=== PATIENT | female | born 1995 | race Caucasian/White ===

== ENCOUNTER 2017-01-26 12:03 | Emergency (ER) | payer BC, OTHER ==
--- NOTE | 2017-01-26 12:34 | ER Document Report ---
ED Medical Screen (RME) - General Chief Complaint: Chest Pain Stated Complaint: CHEST PAINS Time Seen by Provider: 01/26/17 12:31 Notes: Patient says that she has been experiencing left upper chest pain off and on since yesterday. Recalls no unusual activity or injury that would have precipitated this pain. She has been breathing and "short breaths". Has not had a cough or cold or chest congestion. Has not been running any fever. No leg pain or swelling. No history of blood clots. Patient has an IUD this been for several months. She has had no abdominal surgery except for D&Cs. On no prescription medications. TRAVEL OUTSIDE OF THE [place] IN LAST 30 DAYS: No - Related Data Allergies/Adverse Reactions: Beef Containing Products Allergy (Intermediate, Verified 01/26/17 12:27) gluten Allergy (Intermediate, Verified 01/26/17 12:27) lactase [From Dairy Aid] Allergy (Intermediate, Verified 01/26/17 12:27) peas Allergy (Intermediate, Verified 01/26/17 12:27) pork derived (porcine) Allergy (Intermediate, Verified 01/26/17 12:27) Past Medical History - Social History Chew tobacco use (# tins/day): No Frequency of alcohol use: None Drug Abuse: None Renal/ Medical History: Denies: Hx Peritoneal Dialysis Physical Exam - Vital signs Vitals: Temp Pulse Resp BP Pulse Ox 98.4 F 79 13 126/90 H 100 01/26/17 12:09 01/26/17 12:09 01/26/17 12:09 01/26/17 12:09 01/26/17 12:09 Course - Vital Signs Vital signs: Temp Pulse Resp BP Pulse Ox 98.4 F 79 13 126/90 H 100 01/26/17 12:09 01/26/17 12:09 01/26/17 12:09 01/26/17 12:09 01/26/17 12:09
--- NOTE | 2017-01-26 13:32 | RADIOLOGY REPORT (SQ) ---
EXAM DESCRIPTION: CHEST PA/LAT COMPLETED DATE/TIME: 01/26/2017 12:46 pm REASON FOR STUDY: Left Upper chest pain since yesterday COMPARISON: None. EXAM PARAMETERS: NUMBER OF VIEWS: two views TECHNIQUE: Digital Frontal and Lateral radiographic views of the chest acquired. RADIATION DOSE: NA LIMITATIONS: none FINDINGS: LUNGS AND PLEURA: No opacities, masses or pneumothorax. No pleural effusion. MEDIASTINUM AND HILAR STRUCTURES: No masses or contour abnormalities. HEART AND VASCULAR STRUCTURES: Heart normal size. No evidence for failure. BONES: No acute findings. HARDWARE: None in the chest. OTHER: No other significant finding. IMPRESSION: NO SIGNIFICANT RADIOGRAPHIC FINDING IN THE CHEST. TECHNICAL DOCUMENTATION: JOB ID: [id number] [employer]- All Rights Reserved
--- NOTE | 2017-01-26 13:53 | ER Document Report ---
ED Cardiac - General Mode of Arrival: Ambulatory Information source: Patient TRAVEL OUTSIDE OF THE [place] IN LAST 30 DAYS: No - HPI Patient complains to provider of: Chest pain Quality of pain: Intermittent Associated symptoms: Other - see above Exacerbated by: Torso movement <CHRISTIANO NULL - Last Filed: 01/26/17 13:55> <BRIAN LAM - Last Filed: 01/26/17 15:38> - General Chief Complaint: Chest Pain Stated Complaint: CHEST PAINS Time Seen by Provider: 01/26/17 12:31 Notes: Patient is a 21 year old female who presents to the ED with complaints of chest pain that has been intermittent since yesterday morning. Patient states she woke up this morning and the pain was worse. Patient states the pain radiates straight through her back and she describes it as achy and tight. Patient denies any known injury and states she has not been working out lately. Patient states it is painful to breath and states the pain was exacerbated by twisting movement yesterday. Patient denies cough, nausea, vomiting, diarrhea, or any recent travel. Patient states she is not , there is no chance of and states she has the Mirena control. (CHRISTIANO NULL) - Related Data Allergies/Adverse Reactions: Beef Containing Products Allergy (Intermediate, Verified 01/26/17 12:27) gluten Allergy (Intermediate, Verified 01/26/17 12:27) lactase [From Dairy Aid] Allergy (Intermediate, Verified 01/26/17 12:27) peas Allergy (Intermediate, Verified 01/26/17 12:27) pork derived (porcine) Allergy (Intermediate, Verified 01/26/17 12:27) Past Medical History - General Information source: Patient - Social History Smoking Status: Never Smoker Chew tobacco use (# tins/day): No Frequency of alcohol use: None Drug Abuse: None Family History: Reviewed & Not Pertinent Patient has suicidal ideation: No Patient has homicidal ideation: No Renal/ Medical History: Denies: Hx Peritoneal Dialysis <CHRISTIANO NULL - Last Filed: 01/26/17 13:55> Review of Systems - Review of Systems Constitutional: No symptoms reported EENT: No symptoms reported Cardiovascular: See HPI, Chest pain Respiratory: See HPI, Hurts to breathe. denies: Cough Gastrointestinal: See HPI. denies: Diarrhea, Nausea, Vomiting Genitourinary: No symptoms reported Female Genitourinary: No symptoms reported Musculoskeletal: No symptoms reported Skin: No symptoms reported Hematologic/Lymphatic: No symptoms reported Neurological/Psychological: No symptoms reported <CHRISTIANO NULL - Last Filed: 01/26/17 13:55> Physical Exam - General General appearance: Appears well, Alert In distress: None - HEENT Head: Normocephalic, Atraumatic Eyes: Normal Extraocular movements intact: Yes Pupils: PERRL - Respiratory Respiratory status: No respiratory distress Breath sounds: Normal - Cardiovascular Rhythm: Regular Heart sounds: Normal auscultation Murmur: No - Abdominal Inspection: Normal Distension: No distension Tenderness: Nontender - Back Back: Normal - Extremities General upper extremity: Normal inspection, Normal ROM General lower extremity: Normal inspection, Normal ROM, Normal weight bearing. No: Edema - Neurological Neuro grossly intact: Yes - Psychological Associated symptoms: Normal affect, Normal mood - Skin Skin Temperature: Warm Skin Moisture: Dry Skin Color: Normal <CHAKACHRISTIANO - Last Filed: 01/26/17 13:55> Course <CHAKACHRISTIANO - Last Filed: 01/26/17 13:55> - Laboratory Result Diagrams: 01/26/17 13:58 01/26/17 13:58 <BRIAN LAM - Last Filed: 01/26/17 15:38> - Re-evaluation Re-evalutation: 01/26/17 15:26 Patient presents emerged from a chief complaint of chest pain. She says it started yesterday left-sided sharp and stabbing achy hesitant to take a deep breath denies any history of trauma and is right-hand dominant. Says is not associated with shortness of breath cough upper respiratory illness. No recent history of travel surgery immobilization DVT or pulmonary emboli she can reproduce it when she moves a certain way when she twisted around yesterday she felt it. Denies any known cardiac history. EKG showed sinus rhythm with no acute changes chest x-ray and labs nonacute. Pain is somewhat reproducible left anterior chest wall no acute clinical concerns for [place] PE or dissection. Patient did not want Toradol. [place] I could check her thyroid here explained to her that that is really a family practice laboratory evaluation it did not warrant immediate ED evaluation she asked for suggestions on other primary care physicians and told her I could give her the name of the on-call primary care doctor today who is Dr. Riggins. And discuss specific reasons for ED return sooner (BRIAN LAM) - Vital Signs Vital signs: Temp Pulse Resp BP Pulse Ox 98.4 F 79 13 126/90 H 100 01/26/17 12:09 01/26/17 12:09 01/26/17 12:09 01/26/17 12:09 01/26/17 12:09 - Laboratory Laboratory results interpreted by me: 01/26/17 13:58 Creatine Kinase < 20 L - EKG Interpretation by Me Additional EKG results interpreted by me: 01/26/17 15:27 EKG shows sinus rhythm at 56 bpm with no acute ST segment elevation or depression (BRINA LAM) Discharge <CHRISTIANO NULL - Last Filed: 01/26/17 13:55> <BRIAN LAM - Last Filed: 01/26/17 15:38> - Discharge Clinical Impression: nonspecific chest wall pain Condition: Stable Disposition: HOME, SELF-CARE Additional Instructions: Chest Pain of Unclear Cause The exact cause of your chest pain isn't clear. Fortunately, there is no evidence of a dangerous medical condition. Further testing may be required to find the source of the pain. Most often, we find that this pain is coming from the chest wall -- the muscles or rib joints in the chest. But chest pain can come from the lung and lung lining, the esophagus, the heart valves or heart lining, and even the stomach or gallbladder. Rest. Eat lightly until the pain is gone. We may prescribe medicine for pain and inflammation. You should call the physician immediately if the pain radiates to the shoulder, jaw or arms; if you start to run a fever or develop a cough; or if you develop shortness of breath, or other new or alarming symptoms. Follow-up with your primary care physician in 3-4 days return for increasing worsening or new symptoms Referrals: GLEN RIGGINS MD [ACTIVE STAFF] - (In 2-3 days return for increasing worsening or new symptoms) Scribe Attestation: 01/26/17 15:26 I personally performed the services described in the documentation reviewed the documentation recorded by my scribe in my presence and it accurately and completely records my words and actions (BRIAN LAM) Scribe Documentation - Scribe Written by Manuel:: manuel Driscoll, 01/26/2017, [id number] acting as scribe for :: Vadim <CHRISTIANO NULL - Last Filed: 01/26/17 13:55>
[2017-01-26 14:09] LABS: ABSOLUTE EOSINOPHILS # (AUTO) 0.1 10^3/uL (0.0-0.6); ABSOLUTE LYMPHOCYTES (AUTO) 1.4 10^3/uL (0.5-4.7); ABSOLUTE MONOCYTES (AUTO) 0.4 10^3/uL (0.1-1.4); BASOPHILS % (AUTO) 0.6 % (0-2); EOSINOPHILS % (AUTO) 1.5 % (0-6); HEMATOCRIT 39.4 % (36.0-47.0); HEMOGLOBIN 13.7 g/dL (12.0-15.5); HGB HCT DIFFERENCE 1.7; LYMPHOCYTES % (AUTO) 23.8 % (13-45); MEAN CORPUSCULAR HEMOGLOBIN 31.3 pg (27.0-33.4); MEAN CORPUSCULAR HGB CONC 34.8 g/dL (32.0-36.0); MEAN CORPUSCULAR VOLUME 90 fl (80-97); MONOCYTES % (AUTO) 6.8 % (3-13); RED BLOOD COUNT 4.38 10^6/uL (3.72-5.28); RED CELL DISTRIBUTION WIDTH 12.8 % (11.5-14.0); SEGMENTED NEUTROPHILS % (AUTO) 67.3 % (42-78)
[2017-01-26 14:38] LABS: ANION GAP 13 (5-19); BLOOD UREA NITROGEN 13 mg/dL (7-20); CALCIUM 9.6 mg/dL (8.4-10.2); CARBON DIOXIDE 23 mmol/L (22-30); CHLORIDE 103 mmol/L (98-107); CREATINE KINASE < 20 U/L (30-135); CREATININE RESULT 0.79 mg/dL (0.52-1.25); GLUCOSE 86 mg/dL (75-110); POTASSIUM 4.5 mmol/L (3.6-5.0); SODIUM 138.7 mmol/L (137-145)
[2017-01-26 14:46] LABS: TROPONIN I < 0.012 ng/mL
[2017-01-26 15:48] VITALS: BP 108/59
--- NOTE | 2017-01-26 16:41 | EKG REPORT ---
SEVERITY:- NORMAL ECG - SINUS RHYTHM : Confirmed by: Gagandeep Rios MD 26-Jan-2017 16:39:52
== END 2017-01-26 15:47 | disposition home or self-care (01) ==
LOC: ER 12:03
DX: R07.89 Other chest pain (principal)
CPT/HCPCS: 36415; 71020; 80048; 82550; 83880; 84484; 85025; 93005; 93010; 99285

== ENCOUNTER 2017-03-30 16:00 | Emergency (ER) | payer BC, OTHER ==
[2017-03-30 16:05] VITALS: BP 111/67
[2017-03-30 17:14] LABS: ABSOLUTE EOSINOPHILS # (AUTO) 0.1 10^3/uL (0.0-0.6); ABSOLUTE LYMPHOCYTES (AUTO) 1.4 10^3/uL (0.5-4.7); ABSOLUTE MONOCYTES (AUTO) 0.4 10^3/uL (0.1-1.4); ABSOLUTE NEUT (AUTO) 5.5 10^3/uL (1.7-8.2); BASOPHILS % (AUTO) 0.3 % (0-2); EOSINOPHILS % (AUTO) 1.3 % (0-6); HEMATOCRIT 42.4 % (36.0-47.0); HEMOGLOBIN 14.8 g/dL (12.0-15.5); LYMPHOCYTES % (AUTO) 18.9 % (13-45); MEAN CORPUSCULAR HEMOGLOBIN 31.5 pg (27.0-33.4); MEAN CORPUSCULAR VOLUME 90 fl (80-97); MONOCYTES % (AUTO) 5.7 % (3-13); RED BLOOD COUNT 4.71 10^6/uL (3.72-5.28); RED CELL DISTRIBUTION WIDTH 12.5 % (11.5-14.0); SEGMENTED NEUTROPHILS % (AUTO) 73.8 % (42-78); WHITE BLOOD COUNT 7.4 10^3/uL (4.0-10.5)
[2017-03-30 17:29] LABS: ALANINE AMINOTRANSFERASE 33 U/L (9-52); ALBUMIN 4.9 g/dL (3.5-5.0); ALKALINE PHOSPHATASE 50 U/L (38-126); ANION GAP 13 (5-19); ASPARTATE AMINO TRANSFERASE 26 U/L (14-36); BILIRUBIN,DIRECT 0.5 mg/dL (0.0-0.4); BILIRUBIN,TOTAL 1.8 mg/dL (0.2-1.3); BLOOD UREA NITROGEN 13 mg/dL (7-20); CALCIUM 10.1 mg/dL (8.4-10.2); CARBON DIOXIDE 25 mmol/L (22-30); CHLORIDE 103 mmol/L (98-107); CREATININE RESULT 0.76 mg/dL (0.52-1.25); GLUCOSE 95 mg/dL (75-110); POTASSIUM 4.6 mmol/L (3.6-5.0); SODIUM 140.7 mmol/L (137-145); TOTAL PROTEIN 7.8 g/dL (6.3-8.2)
--- NOTE | 2017-03-30 17:50 | RADIOLOGY REPORT (SQ) ---
EXAM DESCRIPTION: CTA CHEST COMPLETED DATE/TIME: 03/30/2017 5:22 pm REASON FOR STUDY: sob travel COMPARISON: None. TECHNIQUE: CT scan of the chest performed using helical scanning technique with dynamic intravenous contrast injection. Images reviewed with lung, soft tissue and bone windows. Reconstructed coronal and sagittal MPR images reviewed. Additional 3 dimensional post-processing performed to develop Maximal Intensity Projection images (MS P). All images stored on PACS. All CT scanners at this facility use dose modulation, iterative reconstruction, and/or weight based d osing when appropriate to reduce radiation dose to as low as reasonably achievable (ALARA). [facility]: Dose Right [facility]: CareDose [facility]: Dose Right [facility]: Teradose 4D [facility]: Beyond the Box CONTRAST TYPE AND DOSE: contrast/concentration: Isovue 370.00 mg/ml; Total Contrast Delivered: 63.0 ml; Total Saline Delivered: 103.0 ml Contrast bolus optimized for the pulmonary arteries. Not diagnostic for the aorta. RENAL FUNCTION: None required. The patient is less than 50 years old. RADIATION DOSE: Up-to-date CT equipment and radiation dose reduction techniques were employed. CTDIv ol: 14.3 - 19.8 mGy. DLP: 519 mGy-cm. . LIMITATIONS: None. FINDINGS: LUNGS AND PLEURA: No masses, infiltrates, pneumothorax. No pleural effusions, calcificati ons. AORTA AND GREAT VESSELS: No aneurysm. Contrast bolus not optimized for the aorta. HEART: No pericardial effusion. No significant coronary artery calcifications. PULMONARY ARTERIES: No emboli visualized in the main pulmonary arteries or the segmental branches. HILAR AND MEDIASTINAL STRUCTURES: No identified masses or abnormal nodes. HARDWARE: None in the chest. UPPER ABDOMEN: No significant findings. Limited exam. THYROID AND OTHER SOFT TISSUES: No masses. No adenopathy. BONES: No acute or significant finding. 3D MIPS: Confirm above findings. OTHER: No other significant finding. IMPRESSION: NORMAL CTA OF THE CHEST. NO PULMONARY EMBOLI. COMMENT: Quality ID # [id number]: Final reports with documentation of one or more dose reduction techniques (e.g., Automated exposure control, adjustment of the mA and/or kV according to patient size, use of iterative reconstruction technique) TECHNICAL DOCUMENTATION: JOB ID: [id number] [employer]- All Rights Reserved
--- NOTE | 2017-03-30 18:01 | ER Document Report ---
ED General - General Chief Complaint: Chest Pain Stated Complaint: CHEST PAIN Time Seen by Provider: 03/30/17 16:53 Mode of Arrival: Ambulatory Information source: Patient Notes: 21-year-old female who recent travel presents with complaints of left anterior chest wall pain. Patient admits to shortness of breath associated with it. She denies any fevers or chills denies any productive cough Patient had similar episode in January TRAVEL OUTSIDE OF THE [place] IN LAST 30 DAYS: No - HPI Onset: Just prior to arrival Onset/Duration: Sudden Quality of pain: Sharp Severity: Mild Pain Level: 1 Associated symptoms: Chest pain, Shortness of breath Exacerbated by: Movement Relieved by: Denies Similar symptoms previously: Yes Recently seen / treated by doctor: No - Related Data Allergies/Adverse Reactions: Beef Containing Products Allergy (Intermediate, Verified 03/30/17 16:04) gluten Allergy (Intermediate, Verified 03/30/17 16:04) lactase [From Dairy Aid] Allergy (Intermediate, Verified 03/30/17 16:04) peas Allergy (Intermediate, Verified 03/30/17 16:04) pork derived (porcine) Allergy (Intermediate, Verified 03/30/17 16:04) Past Medical History - Social History Smoking Status: Never Smoker Cigarette use (# per day): No Chew tobacco use (# tins/day): No Smoking Education Provided: No Frequency of alcohol use: None Drug Abuse: None Family History: Reviewed & Not Pertinent Renal/ Medical History: Denies: Hx Peritoneal Dialysis Surgical Hx: Negative Review of Systems - Review of Systems Notes: REVIEW OF SYSTEMS: CONSTITUTIONAL : Denies fever, chills, or sweats. Denies recent illness. EENT: Denies eye, ear, throat, or mouth pain or symptoms. Denies nasal or sinus congestion or discharge. Denies throat, tongue, or mouth swelling or difficulty swallowing. CARDIOVASCULAR: Admits to chest pain RESPIRATORY: Admits shortness of breath GASTROINTESTINAL: Denies abdominal pain or distention. Denies nausea, vomiting , or diarrhea. Denies blood in vomitus, stools, or per rectum. Denies black, tarry stools. Denies constipation. GENITOURINARY: Denies difficulty urinating, painful urination, burning, frequency, blood in urine, or discharge. FEMALE GENITOURINARY: Denies vaginal bleeding, heavy or abnormal periods, irregular periods. Denies vaginal discharge or odor. MUSCULOSKELETAL: Denies back or neck pain or stiffness. Denies joint pain or swelling. SKIN: Denies rash, lesions or sores. HEMATOLOGIC : Denies easy bruising or bleeding. LYMPHATIC: Denies swollen, enlarged glands. NEUROLOGICAL: Denies confusion or altered mental status. Denies passing out or loss of consciousness. Denies dizziness or lightheadedness. Denies headache. Denies weakness or paralysis or loss of use of either side. Denies problems with gait or speech. Denies sensory loss, numbness, or tingling. Denies seizures. PSYCHIATRIC: Denies anxiety or stress. Denies depression, suicidal ideation, or homicidal ideation. ALL OTHER SYSTEMS REVIEWED AND NEGATIVE. PHYSICAL EXAMINATION: GENERAL: Well-appearing, well-nourished and in no acute distress. HEAD: Atraumatic, normocephalic. EYES: Pupils equal round and reactive to light, extraocular movements intact, conjunctiva are normal. ENT: Nares patent, oropharynx clear without exudates. Moist mucous membranes. NECK: Normal range of motion, supple without lymphadenopathy LUNGS: Breath sounds clear to auscultation bilaterally and equal. No wheezes rales or rhonchi. HEART: Regular rate and rhythm without murmurs ABDOMEN: Soft, nontender, nondistended abdomen. No guarding, no rebound. No masses appreciated. Female : deferred Musculoskeletal: Normal range of motion, no pitting or edema. No cyanosis. Chest pain is reproducible on palpation NEUROLOGICAL: Cranial nerves grossly intact. Normal speech, normal gait. Normal sensory, motor exams PSYCH: Normal mood, normal affect. SKIN: Warm, Dry, normal turgor, no rashes or lesions noted. Dictation was performed using [employer] voice recognition software Physical Exam - Vital signs Vitals: Temp Pulse Resp BP Pulse Ox 97.7 F 71 20 111/67 100 03/30/17 16:04 03/30/17 16:04 03/30/17 16:04 03/30/17 16:04 03/30/17 16:04 Course - Re-evaluation Re-evalutation: 03/30/17 18:00 Chest pain is completely reproducible on palpation therefore I have very low suspicion for any life-threatening issue however patient does have recent travel long period of time therefore CTA was performed which was negative. Therefore I believe there is no life-threatening issues at this time After performing a Medical Screening Examination, I estimate there is LOW risk for RUPTURED ESOPHAGUS, PNEUMOTHORAX, PULMONARY EMBOLISM, ACUTE CORONARY SYNDROME, OR THORACIC AORTIC DISSECTION, thus I consider the discharge disposition reasonable. I have reevaluated this patient multiple times and no significant life threatening changes are noted. The patient and I have discussed the diagnosis and risks, and we agree with discharging home with close follow-up. We also discussed returning to the Emergency Department immediately if new or worsening symptoms occur. We have discussed the symptoms which are most concerning (e.g., bloody sputum, worsening pain or shortness of breath) that necessitate immediate return. - Vital Signs Vital signs: Temp Pulse Resp BP Pulse Ox 97.7 F 71 20 111/67 100 03/30/17 16:04 03/30/17 16:04 03/30/17 16:04 03/30/17 16:04 03/30/17 16:04 - Laboratory Result Diagrams: 03/30/17 17:02 03/30/17 17:02 Laboratory results interpreted by me: 03/30/17 17:02 Total Bilirubin 1.8 H Direct Bilirubin 0.5 H - Diagnostic Test Radiology reviewed: Image reviewed, Reports reviewed - EKG Interpretation by Me EKG shows normal: Sinus rhythm, [place], Intervals, QRS Complexes Discharge - Discharge Clinical Impression: Chest pain Qualifiers: Chest pain type: unspecified Qualified Code(s): R07.9 - Chest pain, unspecified Condition: Stable Disposition: HOME, SELF-CARE Instructions: Chest Wall Pain ([facility]) Additional Instructions: Follow up with your physician tomorrow for further care or return to the ED IMMEDIATELY if symptoms worsen or new concerns occur. If you cannot afford to follow up with your primary care physician a list of low cost clinics have been provided at the end of your discharge papers as well. Prescriptions: Naproxen 500 mg PO BID #20 tablet
--- NOTE | 2017-03-31 16:58 | EKG REPORT ---
SEVERITY:- ABNORMAL ECG - SINUS RHYTHM CONSIDER LEFT VENTRICULAR HYPERTROPHY : Confirmed by: Valerie Mast MD 31-Mar-2017 16:58:14
== END 2017-03-30 18:30 | disposition home or self-care (01) ==
LOC: ER 16:00
DX: R07.89 Other chest pain (principal); R06.02 Shortness of breath; Z91.018 Allergy to other foods
CPT/HCPCS: 36415; 71275; 80053; 85025; 93005; 93010; 99285

== ENCOUNTER 2018-12-09 10:13 | Emergency (ER) | payer BC, OTHER ==
--- NOTE | 2018-12-09 10:52 | ER Document Report ---
ED Medical Screen (RME) - General Chief Complaint: Sore Throat Stated Complaint: THROAT IRRITATION Time Seen by Provider: 12/09/18 10:47 TRAVEL OUTSIDE OF THE [place] IN LAST 30 DAYS: No - HPI Notes: 12/09/18 10:50 Patient is a 23-year-old female who is approximate 13 weeks with no other significant past medical history aside from GERD who presents complaining of dysphagia and feeling of tightness around the lower part of her throat/neck that began at the beginning of the month. Patient states that she did see [facility] yesterday who ordered blood work including thyroid and ordered an u ltrasound for her, but she has not had that done yet. Patient states that every time she eats she feels a tightness. She is still able to eat and drink without difficulty otherwise without any vomiting of undigested foods. Denies PORRAS, fever, URI, CP, SOB, Abd pain, dysuria, back pain, or rash. I have treated and performed a rapid initial assessment of this patient. A comprehensive ED assessment and evaluation of the patient, analysis of test results and completion of medical decision making process will be conducted by additional ED providers. PHYSICAL EXAMINATION: GENERAL: Well-appearing, well-nourished and in no acute distress. A&Ox4. Answers questions appropriately. Moves comfortably w/o notable distress HEAD: Atraumatic, normocephalic. EYES: Pupils equal round and reactive to light, extraocular movements intact, sclera anicteric, conjunctiva are normal. ENT: Nares patent and without discharge. oropharynx no erythema without exudates. No tonsilar hypertrophy without erythema or exudate. No palatine shift. Uvula midline. No tongue protrusion. No drooling, hoarseness, or airway compromise. Moist mucous membranes. No sinus tenderness. NECK: Normal range of motion, supple without lymphadenopathy. No rigidity/meningismus. LUNGS: Breath sounds clear to auscultation bilaterally and equal. No wheezes rales or rhonchi. No retractions - Related Data Allergies/Adverse Reactions: Beef Containing Products Allergy (Intermediate, Verified 03/30/17 16:04) gluten Allergy (Intermediate, Verified 03/30/17 16:04) lactase [From Dairy Aid] Allergy (Intermediate, Verified 03/30/17 16:04) peas Allergy (Intermediate, Verified 03/30/17 16:04) pork derived (porcine) Allergy (Intermediate, Verified 03/30/17 16:04) Past Medical History - Social History Chew tobacco use (# tins/day): No Frequency of alcohol use: None Drug Abuse: None Renal/ Medical History: Denies: Hx Peritoneal Dialysis Physical Exam - Vital signs Vitals: Temp Pulse Resp BP Pulse Ox 98.2 F 73 18 114/57 L 98 12/09/18 10:20 12/09/18 10:20 12/09/18 10:20 12/09/18 10:20 12/09/18 10:20 Course - Vital Signs Vital signs: Temp Pulse Resp BP Pulse Ox 98.2 F 73 18 114/57 L 98 12/09/18 10:20 12/09/18 10:20 12/09/18 10:20 12/09/18 10:20 12/09/18 10:20
[2018-12-09 11:14] LABS: ABSOLUTE EOSINOPHILS # (AUTO) 0.1 10^3/uL (0.0-0.6); ABSOLUTE LYMPHOCYTES (AUTO) 1.3 10^3/uL (0.5-4.7); ABSOLUTE MONOCYTES (AUTO) 0.4 10^3/uL (0.1-1.4); ABSOLUTE NEUT (AUTO) 5.4 10^3/uL (1.7-8.2); BASOPHILS % (AUTO) 0.3 % (0-2); EOSINOPHILS % (AUTO) 1.2 % (0-6); HEMATOCRIT 35.3 % (36.0-47.0); HEMOGLOBIN 12.4 g/dL (12.0-15.5); LYMPHOCYTES % (AUTO) 17.7 % (13-45); MEAN CORPUSCULAR HEMOGLOBIN 32.3 pg (27.0-33.4); MEAN CORPUSCULAR HGB CONC 35.2 g/dL (32.0-36.0); MEAN CORPUSCULAR VOLUME 92 fl (80-97); MONOCYTES % (AUTO) 5.3 % (3-13); PLATELET COUNT 175 10^3/uL (150-450); RED BLOOD COUNT 3.86 10^6/uL (3.72-5.28); RED CELL DISTRIBUTION WIDTH 12.9 % (11.5-14.0); SEGMENTED NEUTROPHILS % (AUTO) 75.5 % (42-78); TOTAL CELLS COUNTED % (AUTO) 100 %; WHITE BLOOD COUNT 7.2 10^3/uL (4.0-10.5)
[2018-12-09 11:35] LABS: ALANINE AMINOTRANSFERASE 16 U/L (9-52); ALKALINE PHOSPHATASE 38 U/L (38-126); ANION GAP 7 (5-19); ASPARTATE AMINO TRANSFERASE 21 U/L (14-36); BILIRUBIN,DIRECT 0.2 mg/dL (0.0-0.4); BILIRUBIN,TOTAL 1.8 mg/dL (0.2-1.3); BLOOD UREA NITROGEN 6 mg/dL (7-20); CALCIUM 9.6 mg/dL (8.4-10.2); CARBON DIOXIDE 24 mmol/L (22-30); CHLORIDE 105 mmol/L (98-107); GLUCOSE 89 mg/dL (75-110); POTASSIUM 5.1 mmol/L (3.6-5.0); SODIUM 136.3 mmol/L (137-145); TOTAL PROTEIN 6.8 g/dL (6.3-8.2)
--- NOTE | 2018-12-09 13:13 | ER Document Report ---
ED General - General Chief Complaint: Sore Throat Stated Complaint: THROAT IRRITATION Time Seen by Provider: 12/09/18 10:47 Information source: Patient, Relative TRAVEL OUTSIDE OF THE [place] IN LAST 30 DAYS: No - HPI Notes: 23-year-old female to the emergency department with complaints of sensation of throat swelling and difficulty swallowing for the past week. States that she p resented to [facility] yesterday and was scheduled for an outpatient thyroid ultrasound. States she noticed the sensation every time she tries to eat or drink. States when she does eat or drink she feels like something gets stuck in her throat and that her throat is closing and. She does have a history of several food allergies but she has not been around or eating any of them. She denies vomiting, fevers, tongue swelling, lip swelling. She states that she is 13 weeks with her third . She is a G3, P1 spontaneous AB 1. She denies any abdominal pain, vaginal bleeding. She has had a confirmed IUP via ultrasound at the [facility]. She has not been taking anything for the sensation. She does admit to a history of acid reflux. - Related Data Allergies/Adverse Reactions: Beef Containing Products Allergy (Intermediate, Verified 03/30/17 16:04) gluten Allergy (Intermediate, Verified 03/30/17 16:04) lactase [From Dairy Aid] Allergy (Intermediate, Verified 03/30/17 16:04) peas Allergy (Intermediate, Verified 03/30/17 16:04) pork derived (porcine) Allergy (Intermediate, Verified 03/30/17 16:04) Past Medical History - General Information source: Patient, Parent - Social History Smoking Status: Never Smoker Chew tobacco use (# tins/day): No Frequency of alcohol use: None Drug Abuse: None Family History: Reviewed & Not Pertinent Patient has suicidal ideation: No Patient has homicidal ideation: No Renal/ Medical History: Denies: Hx Peritoneal Dialysis GI Medical History: Reports: Hx Gastroesophageal Reflux Disease Review of Systems - Review of Systems Constitutional: denies: Chills, Diaphoresis, Fever, Malaise EENT: Difficulty swallowing, Throat swelling Cardiovascular: denies: Chest pain, Palpitations, Heart racing, Syncope, Dizziness, Lightheaded Respiratory: Hemoptysis. denies: Cough, Short of breath Gastrointestinal: denies: Abdominal pain, Diarrhea, Nausea, Vomiting Genitourinary: denies: Frequency, Flank pain, Hematuria Skin: denies: Other Neurological/Psychological: No symptoms reported -: Yes All other systems reviewed and negative Physical Exam - Vital signs Vitals: Temp Pulse Resp BP Pulse Ox 98.2 F 73 18 114/57 L 98 12/09/18 10:20 12/09/18 10:20 12/09/18 10:20 12/09/18 10:20 12/09/18 10:20 Interpretation: Normal - General General appearance: Appears well, Alert - HEENT Head: Normocephalic - No Lowell's angina, no drooling, no tonsillar hypertrophy, airway is grossly patent. Mild posterior cobblestoning., Atraumatic Eyes: Normal Pupils: PERRL Nasal: Normal Mouth/Lips: No: Angioedema Mucous membranes: Normal Pharynx: Normal. No: Uvular edema, Potential airway comprom. Neck: Normal - Respiratory Respiratory status: No respiratory distress Chest status: Nontender Breath sounds: Normal Chest palpation: Normal - Cardiovascular Rhythm: Regular Heart sounds: Normal auscultation Murmur: No - Abdominal Inspection: Normal Distension: No distension Bowel sounds: Normal Tenderness: Nontender Organomegaly: No organomegaly - Back Back: Normal, Nontender - Extremities General upper extremity: Normal inspection, Nontender, Normal color, Normal ROM, Normal temperature General lower extremity: Normal inspection, Nontender, Normal color, Normal ROM, Normal temperature, Normal weight bearing. No: Scar's sign - Neurological Neuro grossly intact: Yes Cognition: Normal Orientation: AAOx4 [place] Coma Scale Eye Opening: Spontaneous [place] Coma Scale Verbal: Oriented [place] Coma Scale Motor: Obeys Commands [place] Coma Scale Total: 15 Speech: Normal Motor strength normal: LUE, RUE, LLE, RLE Sensory: Normal - Psychological Associated symptoms: Normal affect, Normal mood - Skin Skin Temperature: Warm Skin Moisture: Dry Skin Color: Normal Course - Vital Signs Vital signs: Temp Pulse Resp BP Pulse Ox 98.2 F 73 18 114/57 L 98 12/09/18 10:20 12/09/18 10:20 12/09/18 10:20 12/09/18 10:20 12/09/18 10:20 - Laboratory Result Diagrams: 12/09/18 10:53 12/09/18 10:53 Laboratory results interpreted by me: 12/09/18 12/09/18 10:53 10:53 Hct 35.3 L Sodium 136.3 L Potassium 5.1 H BUN 6 L Total Bilirubin 1.8 H - Transfer of Care Notes: 12/09/18 Given history of multiple food allergies, will treat for possible allergic reation as well as a possible reflux like situation. Will hold on a soft tissue neck XR due to patient's . Will give Maalox to drink, prednisone and Benadryl. Rounded on patient and she states she has not worsened. She has been drinking Gatorade and is asking for food. Labs are reassuring. Noted TSH. Suspect that this may be a GI etiology more than allergic, but will send home with lower dose prednisone and carafate. Have her follow with GI. Will have her return if she cannot hold down fluids, has intractable vomiting, fevers, chills, chest pain. Patient and agree with the plan. Discharge - Discharge Clinical Impression: Throat tightness, Foreign body sensation in throat Condition: Stable Disposition: HOME, SELF-CARE Instructions: Dysphagia ([facility]) Additional Instructions: FOLLOW UP WITH GI SPECIALIST LISTED BELOW. TAKE MEDICINES PRESCRIBED. RETURN IF WORSE. PUSH FLUIDS. SOFT FOOD DIET. Prescriptions: Prednisone [Deltasone 20 mg Tablet] 40 mg PO DAILY #6 tablet Sucralfate [Carafate] 1 gm PO QID #420 ml Referrals: SAMREEN DAS MD [ACTIVE STAFF] - Follow up in 1 week (for GI follow up)
[2018-12-09] MEDS ORDERED: MAG HYDROX/AL HYDROX/SIMETH SUSP 30 ML UDCUP PO ONE (13:59)
[2018-12-09] MEDS ORDERED: PREDNISONE 20 MG TABLET PO ONE (13:59)
[2018-12-09] MEDS ORDERED: DIPHENHYDRAMINE HCL 25 MG CAPSULE PO ONE (14:00)
[2018-12-09 15:11] VITALS: BP 105/61
== END 2018-12-09 15:11 | disposition home or self-care (01) ==
LOC: ER 10:13
DX: J02.9 Acute pharyngitis, unspecified (principal); R04.2 Hemoptysis; R09.89 Other specified symptoms and signs involving the circulatory and respiratory systems
CPT/HCPCS: 99283; 36415; 84443; 85025; 80053; J7512

== ENCOUNTER 2018-12-10 11:30 | Emergency (ER) | payer BC, OTHER ==
[2018-12-10 11:36] VITALS: BP 112/67
--- NOTE | 2018-12-10 12:13 | ER Document Report ---
ED Medical Screen (RME) - General Chief Complaint: Dizziness Stated Complaint: DIZZINESS Time Seen by Provider: 12/10/18 12:02 Mode of Arrival: Ambulatory Information source: Patient Notes: Patient is an otherwise healthy 23-year-old female presented to the emergency department at 13 weeks gestation complaining of dizziness and tightness in her throat. Patient reports she was seen here in this emergency department for the throat irritation. She states she was prescribed prednisone and Carafate and states that she believes these medications made her feel dizzy. She states that she called her pharmacist who informed her that prednisone is not safe in the first trimester. Patient is very concerned about the well-being of her . Patient has no other acute complaints at this time. As for the dizziness she reports this feels like the room is spinning around her. Exam: Patient alert, oriented, answering all questions with no abnormalities. Patient ambulates with a steady gait. I have greeted and performed a rapid initial assessment of this patient. A comprehensive ED assessment and evaluation of the patient, analysis of test results and completion of the medical decision making process will be conducted by additional ED providers. Dictation of this chart was performed using voice recognition software; therefore, there may be some unintended grammatical errors . TRAVEL OUTSIDE OF THE [place] IN LAST 30 DAYS: No - Related Data Allergies/Adverse Reactions: Beef Containing Products Allergy (Intermediate, Verified 12/10/18 11:31) gluten Allergy (Intermediate, Verified 12/10/18 11:31) lactase [From Dairy Aid] Allergy (Intermediate, Verified 12/10/18 11:31) peas Allergy (Intermediate, Verified 12/10/18 11:31) pork derived (porcine) Allergy (Intermediate, Verified 12/10/18 11:31) Past Medical History - Social History Frequency of alcohol use: None Drug Abuse: None Pulmonary Medical History: Reports: Hx Asthma Renal/ Medical History: Reports: Hx Kidney Stones. Denies: Hx Peritoneal Dialysis GI Medical History: Reports: Hx Gastroesophageal Reflux Disease Past Surgical History: Reports: Hx Gynecologic Surgery - D+C, Hx Oral Surgery - wisdom teeth Physical Exam - Vital signs Vitals: Temp Pulse Resp BP Pulse Ox 98.6 F 72 18 112/67 100 12/10/18 11:35 12/10/18 11:35 12/10/18 11:35 12/10/18 11:35 12/10/18 11:35 Course - Vital Signs Vital signs: Temp Pulse Resp BP Pulse Ox 98.6 F 72 18 112/67 100 12/10/18 11:35 12/10/18 11:35 12/10/18 11:35 12/10/18 11:35 12/10/18 11:35
[2018-12-10 13:41] LABS: ABSOLUTE MONOCYTES (AUTO) 0.6 10^3/uL (0.1-1.4); ABSOLUTE NEUT (AUTO) 11.6 10^3/uL (1.7-8.2); BASOPHILS % (AUTO) 0.1 % (0-2); LYMPHOCYTES % (AUTO) 13.8 % (13-45); MEAN CORPUSCULAR HEMOGLOBIN 31.9 pg (27.0-33.4); MEAN CORPUSCULAR VOLUME 91 fl (80-97); MONOCYTES % (AUTO) 4.6 % (3-13); PLATELET COUNT 198 10^3/uL (150-450); RED BLOOD COUNT 4.06 10^6/uL (3.72-5.28); SEGMENTED NEUTROPHILS % (AUTO) 81.5 % (42-78); TOTAL CELLS COUNTED % (AUTO) 100 %; WHITE BLOOD COUNT 14.2 10^3/uL (4.0-10.5)
[2018-12-10 13:55] LABS: APPEARANCE,URINE CLOUDY; BILIRUBIN,URINE NEGATIVE (NEGATIVE); CALCIUM OXALATE CRYSTALS,URINE RARE /HPF; COLOR,URINE AMBER; GLUCOSE, URINE NEGATIVE (NEGATIVE); KETONES,URINE NEGATIVE (NEGATIVE); LEUKOCYTE ESTERASE,URINE NEGATIVE (NEGATIVE); NITRITE,URINE NEGATIVE (NEGATIVE); PROTEIN,URINE 30 mg/dL (NEGATIVE); URINE SPECIFIC GRAVITY 1.027; UROBILINOGEN,URINE NEGATIVE mg/dL (<2.0)
[2018-12-10 14:03] LABS: ALANINE AMINOTRANSFERASE 16 U/L (9-52); ALBUMIN 4.6 g/dL (3.5-5.0); ALKALINE PHOSPHATASE 39 U/L (38-126); ANION GAP 9 (5-19); ASPARTATE AMINO TRANSFERASE 20 U/L (14-36); BILIRUBIN,DIRECT 0.2 mg/dL (0.0-0.4); BILIRUBIN,TOTAL 1.2 mg/dL (0.2-1.3); BLOOD UREA NITROGEN 6 mg/dL (7-20); CALCIUM 9.8 mg/dL (8.4-10.2); CARBON DIOXIDE 25 mmol/L (22-30); CHLORIDE 105 mmol/L (98-107); GLUCOSE 84 mg/dL (75-110); POTASSIUM 3.8 mmol/L (3.6-5.0); SODIUM 139.2 mmol/L (137-145); TOTAL PROTEIN 7.6 g/dL (6.3-8.2)
== END 2018-12-10 17:00 | disposition left against medical advice (07) ==
LOC: ER 11:30
DX: O26.891 Other specified pregnancy related conditions, first trimester (principal); R42 Dizziness and giddiness; Z3A.13 13 weeks gestation of pregnancy; O99.511 Diseases of the respiratory system complicating pregnancy, first trimester; J45.909 Unspecified asthma, uncomplicated
CPT/HCPCS: 36415; 80053; 81001; 85025; 87070; 87880; 99281

== ENCOUNTER 2019-05-03 17:32 | Outpatient (CLI) | payer BC, OTHER | END 2019-05-03 18:40 | disposition home or self-care (01) | LOC: LC 17:32 | PROVIDERS: ATTEND Obstetrics & Gynecology | DX: O36.8130 Decreased fetal movements, third trimester, not applicable or unspecified (principal); Z3A.33 33 weeks gestation of pregnancy | CPT/HCPCS: 96372 ==